=== PATIENT | female | born 1995 | race Caucasian/White ===

== ENCOUNTER 2018-09-07 18:30 | Observation (INO) ==
[2018-09-07] MEDS ORDERED: Ringers Solution, Lactated 1,000 ML ONE (18:57)
[2018-09-07] MEDS ORDERED: Ringers Solution, Lactated 1,000 ML IVC ONE ×2 (18:59→23:56)
--- NOTE | 2018-09-07 19:06 | OB/GYN History & Physical ---
Date of Encounter: 09/08/18 Time of Encounter: 19:00 Assessment and Plan (1) labor in third trimester with delivery Current visit: Yes Status: Acute 22yo at 35wks GA who presents with concern for PTL with a known history of UTI 1. R/o PTL - SVE: 2CM/60/-2, recheck in 1 hr: 2-3CM/60/-2 - reports hx of two prior FT at 37+0wks GA - UTD PNC in [place], uncomplicated thus far - dx with UTI 09/05, has not taken medication(S) appropriately - given 1L IVF bolus on admission with UA sent with reflex to culture - patient was with persistent contraction(s) overnight at which point she was kept for observation and given 2L IVF bolus - contraction(S) dissipated and her cervix remained unchanged at 2-3cm dilation - discussed patient f/u with OBGYN in [place] 2. Hx of UTI - hx of positive UA - rx with patient, has been prescibed but not taking rx - recommended patient continue rx and take appropriately 3. FWB - RNST for GA - +accels, no decels - toco now quiet Dispo: PAtient given PTL precaution(S). MD ADALI Qualifiers: Fetus number: single or unspecified fetus Qualified Code(s): O60.14X0 - labor third trimester with delivery third trimester, not applicable or unspecified (2) UTI (urinary tract infection) Current visit: Yes Status: Acute Qualifiers: Urinary tract infection type: acute cystitis Hematuria presence: without hematuria Qualified Code(s): N30.00 - Acute cystitis without hematuria History of Present Illness Chief complaint: Concern for PTL HPI: Ms. Abel is a 22 year old female who presents with concern for labor. Reports to have had a history of two prior FT at 37+0wks GA. Denies vaginal bleeding, leaking of fluid. Reports to be having lower back discomfort. States to have had a history of UTI that was diagnosed on Tuesday and has not yet taken her antibiotics appropriately. Reports to have PNC in [place], [place], but was concerned that she was in labor so she presented to triage. Uncomplicated otherwise. Past Med Surg Social Fam HX - Past Medical History Medical history: no medical history - Past Surgical History Surgical History: no surgical history - Social History Smoking Status: Former smoker Smokeless Tobacco Status: No Alcohol use: none Drug use: none - Family History Mother Name: Artemio Bower Age: 48 Living Status: Still Living Hx Family Cardiac Disorders: Yes (HTN) Obstetrical History - Pregnancies : 3 Para: 2 Term: 2 : 0 Ab's: 0 Livin Medications and Allergies Tablet 09/07/18 [History] Allergy/AdvReac Type Severity Reaction Status Date / Time No Known Allergies Allergy Verified 09/07/18 18:50 Review of System OB All systems PM: reviewed and no additional remarkable complaints except as stated Exam - Constitutional Constitutional: well developed - Neck Neck exam: full ROM - Lungs Respiratory exam: CTAB - Cardiovascular Cardiovascular exam: RRR - Abdomen Abdomen: Present: bowel sounds normal - Vagina Vagina: Present: normal moisture - Uterus Uterus exam: Present: normal size, normal contour - Anus/Rectum Anus/Rectum: Present: heme negative Results Result Diagrams: 09/07/18 19:20 All other labs normal. - VTE Reasons for not Prescribing Prophylaxis: Treatment not Indicated - Low risk for VTE
[2018-09-07 19:37] LABS: Bilirubin,Urine Negative (Negative); Blood,Urine Negative (Negative); Clarity,Urine Cloudy (Clear); Color,Urine Yellow (Yellow); Glucose,Urine (UA) Normal (Normal); Ketones,Urine Trace mg/dL (Negative); Leukocyte Esterase,Urine Trace (Negative); Nitrite,Urine Negative (Negative); Protein,Urine Negative (Neg-Trace); Specific Gravity,Urine 1.014 (1.010-1.025); Urobilinogen,Urine Normal (Normal)
[2018-09-07 19:40] LABS: Bacteria,Urine Moderate per hpf (None-Few); Hyaline Casts,Urine None Seen per lpf (None-Few); RBC,Urine 0-3 per hpf (0-3); Squamous Epithelial Cell,Urine Many per lpf (None-Few)
[2018-09-07 19:45] LABS: Amphetamine Screen,Urine Negative ng/mL (Cutoff=1000); Barbiturate Screen,Urine Negative ng/mL (Cutoff=200); Benzodiazepines Screen,Urine Negative ng/mL (Cutoff=200); Cannabinoid Screen,Urine Negative ng/mL (Cutoff = 50); Cocaine Screen,Urine Negative ng/mL (Cutoff= 300); Opiate Screen,Urine Negative ng/mL (Cutoff=300); Phencyclidine Screen,Urine Negative ng/mL (Cutoff=25)
[2018-09-07] MEDS ORDERED: Mag Hydrox/Al Hydrox/Simeth 30 ML UDC PO PRN (21:37)
[2018-09-07 23:55] LABS: Basophils % 0.2 %; Eosinophils # 0.1 K/mcL (0.0-0.6); Eosinophils % 1.1 %; Hematocrit 34.6 % (35.3-44.9); Hemoglobin 11.1 g/dL (11.5-15.4); Immature Granulocytes % 0.4 % (0-4); Lymphocytes # 2.3 K/mcL (0.6-4.6); Lymphocytes % 19.9 %; Mean Corpuscular HGB Conc 32.1 g/dL (31.6-35.5); Mean Corpuscular Hemoglobin 27.1 pg (28.0-33.3); Mean Corpuscular Volume 84.4 fL (83.0-100.0); Mean Platelet Volume 12.7 fL (9.4-12.4); Monocytes # 0.6 K/mcL (0.0-1.3); Monocytes % 5.2 %; Neutrophils # 8.3 K/mcL (1.6-8.9); Platelet Count 196 K/mcL (140-400); Red Cell Distribution Width 13.1 % (11.5-14.5); Segmented Neutrophils % 73.2 %
== END 2018-09-08 08:24 | disposition home or self-care (01) ==
LOC: 1NENULAB
PROVIDERS: ADMIT Advanced Practice Midwife; ATTEND Advanced Practice Midwife